=== PATIENT | female | born 1995 | race Caucasian/White ===

== ENCOUNTER 2017-02-10 09:21 | Emergency (ER) | payer OTHER ==
[~2017-02-10] VITALS: Ht 165.1 cm; Wt 54.4 kg
[2017-02-10 09:51] LABS: EOSINOPHIL (%) 0.5 % (0-5); EOSINOPHIL COUNT 0.1 K/uL (0-0.3); HEMATOCRIT 42.1 % (36.0-46.0); IMMATURE GRANULOCYTE (%) 0.4 % (0.0-0.7); IMMATURE GRANULOCYTE COUNT 0.1 K/uL; INSTRUMENT ABS NEUTROPHIL CT 10.9 K/uL; LYMPHOCYTE COUNT 1.4 K/uL (1.0-2.8); MCH 29.9 PG (29.0-34.0); MCV 87.9 FL (83-99); MEAN PLAT.VOLUME 10.4 uM^3 (9.5-12.4); MONOCYTE (%) 5.7 % (3-12); MONOCYTE COUNT 0.8 K/uL (0-0.8); NEUTROPHIL (%) 82.8 % (45-76); NEUTROPHIL COUNT 10.9 K/uL (1.8-6.4); PLATELET COUNT 229 K/uL (156-360); RBC DIS.WIDTH-CV 11.9 % (11.8-14.6); RBC DIS.WIDTH-SD 38.5 % (39-53); RED BLOOD COUNT 4.79 M/uL (3.80-5.20); WHITE BLOOD COUNT 13.2 K/uL (4.1-10.2)
[2017-02-10 10:01] LABS: CHLORIDE 105 mEq/L (99-109); POTASSIUM 3.8 mEq/L (3.7-5.4); SODIUM 136 mEq/L (136-147)
[2017-02-10 10:01] LABS: ADD MIUA? YES; BILIRUBIN NEGATIVE; BLOOD SMALL; GLUCOSE (STRIP) NEGATIVE; KETONES NEGATIVE; LEUKOCYTES NEGATIVE; NITRITE NEGATIVE; PROTEIN (STRIP) 30; SPECIFIC GRAVITY 1.015 (1.000-1.030); UROBILINOGEN 0.2 MG/DL (0.2-1.0)
[2017-02-10 10:02] LABS: GLUCOSE 103 mg/dL (70-99)
[2017-02-10 10:02] LABS: INTERNAL CONTROL VALID? YES
[2017-02-10 10:03] LABS: COLOR YELLOW ((YELLOW))
[2017-02-10 10:04] LABS: ANION GAP 10 MEQ/L (2-14)
[2017-02-10 10:05] LABS: BACTERIA RARE /HPF; EPITHELIAL CELLS 1+ /HPF; MUCUS TRACE /LPF; RED BLOOD CELLS 40-50 /HPF (0-5); UCUL ADDED? NO; WHITE BLOOD CELLS 0-5 /HPF (0-5)
[2017-02-10 10:06] LABS: GFR ESTIMATE (CALCULATED) > 59 mL/min/
[2017-02-10 10:07] LABS: UREA NITROGEN (BUN) 9 mg/dL (9-23)
[2017-02-10] MEDS ORDERED: CIPRO500 MG PO (11:26)
[2017-02-10] MEDS ORDERED: PERCOCET 5/31 TABLET PO (11:26)
[2017-02-10 11:54] VITALS: BP 118/77
== END 2017-02-10 11:55 | disposition home or self-care (01) ==
LOC: EME 09:21
PROVIDERS: Emergency Medicine
DX: N20.0 Calculus of kidney (principal); Z87.442 Personal history of urinary calculi; Z87.440 Personal history of urinary (tract) infections
CPT/HCPCS: 74176; 80048; 81003; 84703; 85025; 99281; 99285; J1885; J2405; J7030